=== PATIENT | female | born 1970 | race Caucasian/White ===

== ENCOUNTER 2022-12-04 21:07 | Emergency (ER) | payer OTHER, SELFPAY ==
[2022-12-04 21:27] VITALS: BP 144/91; PULSE 62; RESP 22; TEMP 36.7; O2SAT 100; BMI 32.3
--- NOTE | 2022-12-04 21:56 | ED_ITS ---
HPI - Female Genitourinary General Chief complaint: Urogenital-Female Stated complaint: VAGINAL SWABS C/O BURNING ITICHING Time Seen by Provider: 12/04/22 21:12 Source: patient Mode of arrival: walk-in History of Present Illness HPI Narrative: patient is a 51-year-old female who presents to the emergency department from a local detox facility for evaluation of vaginal discharge that has been present for three weeks. She has not had any fevers or vomiting. She reports burning with urination and thinks she may have a urinary tract infection. She is also concerned that the housing situation she was in previously was in a poor state and she is concerned she may have been exposed to body lice, or other parasites. She states she reached down into her groin yesterday and thought she felt something moving but is not sure if she may just be anxious. She is requesting treatment for body lice as well. She is not particularly concerned for STD exposure. Related Data Previous Rx's Medication Instructions Recorded ciprofloxacin HCl 500 mg tablet 500 mg PO BID #14 tabs 12/04/22 (Cipro) metronidazole 500 mg tablet 500 mg PO BID 7 days #14 tabs 12/04/22 ondansetron 4 mg disintegrating 4 mg PO Q6H PRN nausea and 12/04/22 tablet vomiting #12 tabs permethrin 5 % topical cream 1 applic topical ONCE 1 dose #60 12/04/22 grams Allergies Allergy/AdvReac Type Severity Reaction Status Date / Time prochlorperazine Allergy Intermediate Agitated Verified 12/04/22 21:31 [From Compazine] Review of Systems ROS Constitutional Denies: fever or chills Ears, nose, mouth, and throat Denies: throat pain Cardiovascular Denies: chest pain Respiratory Denies: shortness of breath or cough Gastrointestinal Denies: abdominal pain, nausea or vomiting Genitourinary Reports: painful urination, vaginal discharge and vaginal odor Musculoskeletal Denies: back pain Integumentary/Breast Denies: rash Neurological Denies: headache Allergic/Immunologic Denies: hives PFSH PFSH Social History Smoking status: Never smoker Exam Narrative Exam Narrative: Gen.: Awake, alert, in no distress Head: Normocephalic, atraumatic ENT: Moist mucous membranes Respiratory: No respiratory distress Gastrointestinal: Abdomen is soft, nondistended and nontender to palpation : patient examined with Sia north RN at bedside throughout the duration of the exam. External exam is normal with no visible pubic lice or lesions. Speculum exam with white vaginal discharge, no cervical motion tenderness. Extremities: Moves extremities equally Psych: Normal mood and affect Neuro: No focal neuro deficit Skin: Warm, dry, intact Constitutional Vital Signs, click to edit/add: Last Vital Signs Temp 98.1 F 12/04/22 21:27 Pulse 62 12/04/22 21:27 Resp 22 12/04/22 21:27 BP 144/91 H 12/04/22 21:27 Pulse Ox 100 12/04/22 21:27 O2 Del Method Room Air 12/04/22 21:27 Course Vital Signs Vital signs: Vital Signs Temperature 98.1 F 12/04/22 21:27 Pulse Rate 62 12/04/22 21:27 Respiratory Rate 22 12/04/22 21:27 Blood Pressure 144/91 H 12/04/22 21:27 Pulse Oximetry 100 12/04/22 21:27 Oxygen Delivery Method Room Air 12/04/22 21:27 Temperature 98.1 F 12/04/22 21:27 Pulse Rate 62 12/04/22 21:27 Respiratory Rate 22 12/04/22 21:27 Blood Pressure 144/91 H 12/04/22 21:27 Pulse Oximetry 100 12/04/22 21:27 Oxygen Delivery Method Room Air 12/04/22 21:27 MDM - Female Genitourinary MDM Narrative Medical decision making narrative: results show wet prep is positive for Trichomonas, urine shows nitrate positive urinary tract infection. Patient treated for trichomoniasis with Flagyl 500 mg for 7 days per updated recommendations as well as Cipro for urinary tract infection, Zofran given as needed as well as permethrin at the patient's request. GC/chlamydia cultures are pending. Follow-up with PCP and return to the Emergency Room if symptoms change or worsen. Medical Records Attestation: I reviewed the patient's medical records. Lab Data Attestation: I reviewed the patient's lab results. Labs: Lab Results 12/04/22 Range/Units 22:00 Urine Color Dk. yellow (YELLOW) Urine Clarity Clear (CLEAR) Urine pH 8.5 (5.0-9.0) Ur Specific [place] 1.015 (1.005-1.025) Urine Protein 30 A (NEG/TRACE) mg/dL Urine Glucose (UA) Negative (NEGATIVE) mg/dL Urine Ketones Negative (NEGATIVE) mg/dL Urine Occult Blood Small A (NEGATIVE) Urine Nitrite Positive A (NEGATIVE) Urine Bilirubin Negative (NEGATIVE) Urine Urobilinogen 1.0 (0.2-1.0) EU/dL Ur Leukocyte Esterase Large A (NEGATIVE) Urine RBC 5-10 A (0-2) #/HPF Urine WBC 20-50 A (NONE SEEN) #/HPF Ur Squamous Epith Cells Few A (NONE/RARE) #/LPF Urine Crystals None seen (None Seen) #/HPF Urine Bacteria Large A (NONE SEEN) #/HPF Urine Casts None seen (NONE SEEN) #/LPF Urine Mucus None seen (NONE SEEN) Urine Trichomonas Seen A (NONE SEEN) Ur Culture Indicated? Yes Discharge Plan Discharge Chief Complaint: Urogenital-Female Clinical Impression: Trichomoniasis, Vaginitis, Urinary tract infection Patient Disposition: Home, Self-Care Time of Disposition Decision: 22:21 Condition: Good Prescriptions / Home Meds: New metronidazole 500 mg tablet 500 mg PO BID 7 Days Qty: 14 0RF ondansetron 4 mg tablet,disintegrating 4 mg PO Q6H PRN (Reason: nausea and vomiting) Qty: 12 0RF permethrin 5 % cream 1 applic topical ONCE Qty: 60 0RF Rx Instructions: Apply to skin and wash off after 8-10 hours ciprofloxacin HCl [Cipro] 500 mg tablet 500 mg PO BID Qty: 14 0RF Instructions: Trichomoniasis (ED), Urinary Tract Infection in Women (ED), Vaginal Discharge (ED) Stand Alone Forms: Portal Instructions Referrals: Physician,Non-Staff, MD [Primary Care Provider] - 1 week Discharge Date/Time: 12/04/22 22:37
--- NOTE | 2022-12-04 21:58 | PC.NURSE ---
patient has [facility] a few weeks prior to her arrival at [facility]. states at the [facility] she was exposed to bed bugs and crabs may also have STD exposure. states she has had vaginal discharge for the past few weeks. then states today she reached down to scratch vaginal area and felt like she felt a bug or something crawling .
[2022-12-04 22:19] LABS: Bilirubin Urine NEGATIVE (NEGATIVE); Blood Urine SMALL (NEGATIVE); Clarity Urine CLEAR (CLEAR); Color Urine DK. YELLOW (YELLOW); Glucose Urine UA NEGATIVE (NEGATIVE); Ketones Urine NEGATIVE (NEGATIVE); Leukocyte Esterase Urine LARGE (NEGATIVE); Nitrite Urine POSITIVE (NEGATIVE); Protein Urine 30 mg/dL (NEG/TRACE); Specific Gravity Urine 1.015 (1.005-1.025); Urine Microscopic Indicated YES; pH Urine 8.5 (5.0-9.0)
[2022-12-04 22:25] LABS: Bacteria Urine LARGE #/HPF (NONE SEEN); Crystals Seen? None Seen #/HPF (None Seen); Mucus Urine NONE SEEN (NONE SEEN); Squamous Epithelial Cell Urine FEW #/LPF (NONE/RARE); WBC Urine 20-50 #/HPF (NONE SEEN)
[2022-12-04 22:26] LABS: Cast Seen? NONE SEEN #/LPF (NONE SEEN); Trichomonas Urine SEEN (NONE SEEN); Urine Culture Indicated YES
[2022-12-04] MEDS: CIPROFLOXACIN HCL 500 MG TABLET PO (22:32)
[2022-12-04] MEDS: METRONIDAZOLE 250 MG TABLET 500 MG PO (22:32)
[2022-12-07 13:09] LABS: Neisseria gonorrhoeae, NAA Negative (Negative)
== END 2022-12-04 22:37 | disposition home or self-care (01) ==
PROVIDERS: Physician Assistant; Emergency Provider Emergency Medicine
DX: A59.01 Trichomonal vulvovaginitis (principal); N39.0 Urinary tract infection, site not specified
CPT/HCPCS: 81001; 81003; 87086; 87150; 87186; 87210; 87491; 87591; 99284